=== PATIENT | male | born 1955 | race Asian ===

== ENCOUNTER 2017-05-18 22:43 | Emergency (ER) | payer BC, OTHER ==
[~2017-05-18] VITALS: Ht 172.7 cm; Wt 75.0 kg
[2017-05-18] MEDS ORDERED: VITAMINS PO (22:56)
[2017-05-18 22:58] LABS: GLUCOSE,POINT OF CARE 164 MG/DL (70-110)
[2017-05-18 23:07] VITALS: BP 160/91
[2017-05-18] MEDS ORDERED: PERTUSS(ACELL),DIPH,TET VAC/PF 0.5 ML VIAL IM ONE (23:15)
== END 2017-05-19 00:42 | disposition home or self-care (01) ==
LOC: EMS 22:44
DX: S61.412A Laceration without foreign body of left hand, initial encounter (principal); E11.9 Type 2 diabetes mellitus without complications; F17.210 Nicotine dependence, cigarettes, uncomplicated; W45.8XXA Other foreign body or object entering through skin, initial encounter; Y93.89 Activity, other specified; Y92.89 Other specified places as the place of occurrence of the external cause; Y99.8 Other external cause status
CPT/HCPCS: 12001; 82962; 90471; 90715; 99284